=== PATIENT | female | born 1970 | race Hispanic/Latino ===

== ENCOUNTER → 2024-03-31 | Outpatient (REF) | payer OTHER | LOC: RAD 11:16 | PROVIDERS: ATTEND Family Medicine | DX: M25.512 Pain in left shoulder (principal); G89.29 Other chronic pain ==

== ENCOUNTER → 2024-04-28 | Outpatient (REF) | payer OTHER | LOC: MRI 09:12 | PROVIDERS: ATTEND Family Medicine | DX: M25.512 Pain in left shoulder (principal); G89.29 Other chronic pain ==